=== PATIENT | male | born 1960 | race African-American/Black ===

== ENCOUNTER 2016-09-05 11:50 | Emergency (ER) | payer SELFPAY ==
[~2016-09-05] VITALS: Ht 180.3 cm; Wt 100.0 kg
[~2016-09-05 11:50] MED LIST: CLON.2 PO; IBUP800T23 PO; TRAM50 PO
[2016-09-05 11:51] VITALS: BP 160/88; PULSE 67; RESP 15; TEMP 98.2; O2SAT 95
--- NOTE | 2016-09-05 12:11 | PD ---
HPI Chief Complaint: Back/ Neck Pain or Injury Time Seen by Provider: 12:11 Travel History International Travel<30 days: No Contact w/Intl Traveler<30days: No Traveled to known affect area: No History of Present Illness HPI 56-year-old male presents to the emergency Department with complaint of low back pain since yesterday after lifting a heavy bedside table. He has history of chronic low back pain and has exacerbated the pain more. Pain is worse on the right lower back than the left. He denies paresthesias, loss of sensation, decreased range of motion, decreased strength to bilateral lower extremities. Denies encopresis, incontinence, saddle anesthesias. Denies fever, chills, nausea, vomiting. Denies abdominal pain. Denies radiation of pain. Denies change in urine or stool. Denies IV drug use or cancer. Took aspirin this morning with minimal relief of pain. Has been wearing a back brace for support with good relief. Pain is aggravated with standing up straight. Pain is decreased while at rest. Allergies to Benadryl. No other modifying factors or associated signs and symptoms. PFSH Past Medical History Heart Rhythm Problems: No Cardiac Catheterization: No Cardiovascular Problems: No High Cholesterol: No Congestive Heart Failure: No Diabetes: No Past Surgical History Coronary Artery Bypass Graft: No Social History Alcohol Use: Yes Tobacco Use: Yes Substance Use: Yes (COCAINE) Allergies-Medications (Allergen,Severity, Reaction): Coded Allergies: Benadryl (Verified Allergy, Unknown, increased heart rate, 09/05/16) Reported Meds & Prescriptions Reported Meds & Active Scripts Active Ibuprofen 800 Mg Tab 800 Mg PO Q6HR PRN Robaxin (Methocarbamol) 500 Mg Tab 500 Mg PO QID PRN Ultram (Tramadol HCl) 50 Mg Tab 1 Tab PO EVERY 6 HOURS FOR PAIN Ibuprofen 800 Mg Tab 800 Mg PO TID Catapres (Clonidine HCl) 0.2 Mg Tab 0.2 Mg PO Q12 30 Days Review of Systems Except as stated in HPI: all other systems reviewed are Neg Physical Exam Narrative GENERAL: Well-nourished, well-developed male patient, in no acute distress SKIN: Warm and dry. HEAD: Atraumatic. Normocephalic. EYES: Pupils equal and round. No scleral icterus. No injection or drainage. ENT: Mucosa pink and moist. Airway patent. NECK: Trachea midline. CARDIOVASCULAR: Regular rate. RESPIRATORY: No accessory muscle use. GASTROINTESTINAL: Abdomen soft, non-tender, nondistended. Positive bowel sounds. No hepato-splenomegaly, or palpable masses. No guarding. MUSCULOSKELETAL: Bilateral lower extremities supple and non-tense with 2+ pedal pulses and sensory intact; with full range of motion and 5/5 strength. 2 + DTRs bilaterally. Active dorsiflexion and extension of bilateral feet. Bilateral straight leg raise is positive for low back pain. Ambulatory with normal gait and round. Sitting up in bed at 90. No obvious deformities. No clubbing. No cyanosis. No edema. BACK: No midline point tenderness on palpation of the lumbar, thoracic, or cervical spine. Tenderness on palpation of bilateral iliosacral area; right greater than left. No obvious deformities. NEUROLOGICAL: Awake and alert. Oriented 3. No obvious cranial nerve deficits. Motor grossly within normal limits. Normal speech. Moves all extremities. 5/5 strength to all extremities. Sensory intact. PSYCHIATRIC: Appropriate mood and affect; insight and judgment normal. Data Data Last Documented VS Vital Signs Date Time Temp Pulse Resp B/P Pulse Ox O2 Delivery O2 Flow Rate FiO2 09/05/16 11:51 98.2 67 15 160/88 95 Orders Ibuprofen (Motrin) (09/05/16 12:15) Methocarbamol (Robaxin) (09/05/16 12:15) [facility] Medical Decision Making Medical Screen Exam Complete: Yes Emergency Medical Condition: Yes Medical Record Reviewed: Yes Differential Diagnosis Acute exacerbation of chronic low back pain, low back strain, muscle spasms Narrative Course 56-year-old male with acute exacerbation of chronic low back pain, low back strain, muscle spasms of the back. Denies encopresis, incontinence, saddle anesthesias. Patient is ambulatory in the room with a normal gait. No midline point tenderness on palpation of the lumbar or thoracic spine. Denies IV drug use or cancer. Patient is afebrile and nontoxic-appearing. He denies fever, chills, nausea, vomiting, abdominal pain. Robaxin and ibuprofen administered in the ER. Robaxin and ibuprofen prescribed for home. Patient verbalizes understanding and agreement with treatment plan. Patient is medically cleared and stable for discharge. Discussed reasons to return to the emergency department. Instructed patient to follow up with primary care provider. Patient agrees with treatment plan. The patients vital signs are stable and the patient is stable for outpatient follow-up and treatment. Patient discharged home, stable and in no acute distress. Diagnosis Primary Impression: Low back strain Qualified Code: S39.012A - Low back strain, initial encounter Additional Impressions: Acute exacerbation of chronic low back pain Muscle spasm of back Referrals: Primary Care Physician Patient Instructions: Acute Low Back Pain (ED), General Instructions, Low Back Strain (ED), Muscle Spasm (ED) Departure Forms: Tests/Procedures, Work Release Enter return to work date: Sep 08, 2016 Additional Instructions: Tylenol or ibuprofen as directed and as needed for pain Robaxin as prescribed and as needed for muscle spasms Heating pad and/or ice to affected area to reduce pain Avoid aggravating activities; increase activity as tolerated Follow-up with primary care provider Return to emergency department immediately with worsening of symptoms Med/Other Pt SpecificInfo: Prescription(s) given Scripts Ibuprofen 800 Mg [id number] Mg PO Q6HR PRN (PAIN) #30 TAB Ref 0 Prov:Lesley Michele 09/05/16 Methocarbamol (Robaxin)500 Mg [id number] Mg PO QID PRN (MUSCLE SPASM) #30 TAB Ref 0 Prov:Lesley Michele 09/05/16 Disposition: 01 DISCHARGE HOME Condition: Stable Lesley Michele Sep 05, 2016 12:11
[2016-09-05] MEDS ORDERED: ROBA500T PO (12:14)
[2016-09-05] MEDS ORDERED: IBUP800T23 PO (12:14)
[2016-09-05] MEDS ORDERED: IBUPROFEN 800 MG TAB PO ONE (12:15)
[2016-09-05] MEDS ORDERED: METHOCARBAMOL 500 MG TAB PO ONE (12:15)
== END 2016-09-05 12:42 | disposition home or self-care (01) ==
LOC: NETRI 11:50
DX: S39.012A Strain of muscle, fascia and tendon of lower back, initial encounter (principal); M62.830 Muscle spasm of back; X50.0XXA Overexertion from strenuous movement or load, initial encounter; Y92.9 Unspecified place or not applicable; Y99.9 Unspecified external cause status
CPT/HCPCS: 99283

== ENCOUNTER 2016-12-21 19:07 | Emergency (ER) | payer SELFPAY ==
[~2016-12-21] VITALS: Ht 180.3 cm; Wt 100.0 kg
[~2016-12-21 19:07] MED LIST changes: +ROBA500T PO
[2016-12-21 19:09] VITALS: BP 136/77; PULSE 62; RESP 16; TEMP 98.8; O2SAT 97
== END 2016-12-21 21:19 | disposition left against medical advice (07) ==
LOC: NED 19:07
DX: R10.9 Unspecified abdominal pain (principal); Z53.21 Procedure and treatment not carried out due to patient leaving prior to being seen by health care provider
CPT/HCPCS: 99281

== ENCOUNTER 2017-05-17 22:07 | Emergency (ER) | payer SELFPAY ==
[~2017-05-17] VITALS: Ht 180.3 cm; Wt 100.0 kg
[~2017-05-17 22:07] MED LIST changes: +IBUP1TAB7 PO
[2017-05-17 22:13] VITALS: BP 115/66; PULSE 78; RESP 16; TEMP 98.4; O2SAT 96
[2017-05-17] MEDS ORDERED: ASPI81CH6 PO (22:41)
--- NOTE | 2017-05-17 23:05 | PD ---
HPI Chief Complaint: Pain: Acute or Chronic Time Seen by Provider: 22:41 Travel History International Travel<30 days: No Contact w/Intl Traveler<30days: No Traveled to known affect area: No History of Present Illness HPI 57 year old male presents for evaluation of Left wrist pain. He states that he has been having a sharp/shooting pain in his Left wrist for about three weeks now. He came to the ED today because it seems to be getting worse. He has pain with activity. He has not taken anything for the pain. He denies any injury to the extremity. He denies fevers/chills. No nausea or vomiting. He has never had gout before although his father suffers from it. He is sexually active with multiple female partners however, he is convinced that he doesn't have any STIs. [facility] Past Medical History Medical History: Denies Significant Hx Heart Rhythm Problems: No Cardiac Catheterization: No Cardiovascular Problems: No High Cholesterol: No Congestive Heart Failure: No Diabetes: No Diminished Hearing: No Heparin Induced Thrombocytopen: No Hypertension: No Past Surgical History Coronary Artery Bypass Graft: No Family History Family Myocardial Infarction: Yes Social History Alcohol Use: No Tobacco Use: No Substance Use: No (COCAINE) Allergies-Medications (Allergen,Severity, Reaction): Coded Allergies: diphenhydramine (Unverified Allergy, Unknown, increased heart rate, ) ondansetron (Verified Adverse Reaction, Mild, Nausea/Vomiting, 05/17/17) Reported Meds & Prescriptions Reported Meds & Active Scripts Active Mobic (Meloxicam) 15 Mg Tab 15 Mg PO DAILY 7 Days Reported Aspirin Low Dose (Aspirin) 81 Mg Chew 162 Mg PO DAILY Review of Systems Except as stated in HPI: all other systems reviewed are Neg General / Constitutional: No: Fever, Chills Eyes: No: Blurred Vision HENT: No: Headaches, Lightheadedness Cardiovascular: No: Chest Pain or Discomfort Respiratory: No: Cough, Shortness of Breath Gastrointestinal: No: Nausea, Vomiting, Diarrhea Musculoskeletal: Positive: Myalgias, Arthralgias, Pain (Left wrist) Physical Exam Narrative GENERAL: patient is laying in bed comfortably in no acute distress SKIN: Warm and dry. HEAD: Atraumatic. Normocephalic. EYES: Pupils equal and round. No scleral icterus. No injection or drainage. ENT: No nasal bleeding or discharge. Mucous membranes pink and moist. NECK: Trachea midline. No JVD. CARDIOVASCULAR: Regular rate and rhythm. RESPIRATORY: No accessory muscle use. Clear to auscultation. Breath sounds equal bilaterally. GASTROINTESTINAL: Abdomen soft, non-tender, nondistended. Hepatic and splenic margins not palpable. MUSCULOSKELETAL: Extremities without clubbing, cyanosis, or edema. No obvious deformities. There is tenderness to palpation over the distal radius overlying the FCR tendons, there is also pain with resisted radial deviation. No tenderness noted in the anatomic snuffbox. Radial and ulnar pulses are 2+ and symmetrical. Neurologically intact C6-8. Phalen's and Tinel's signs negative. NEUROLOGICAL: Awake and alert. No obvious cranial nerve deficits. Motor grossly within normal limits. Five out of 5 muscle strength in the arms and legs. Normal speech. PSYCHIATRIC: Appropriate mood and affect; insight and judgment normal. Data Data Last Documented VS Vital Signs Date Time Temp Pulse Resp B/P (MAP) Pulse Ox O2 Delivery O2 Flow Rate FiO2 05/17/17 23:27 05/17/17 22:13 98.4 78 16 96 Orders Orders Ed Discharge Order (05/17/17 23:10) MDM Medical Decision Making Medical Screen Exam Complete: Yes Emergency Medical Condition: Yes Differential Diagnosis De Quervain Tenosynovitis, Osteoarthritis, Gouty Arthritis, Disseminated Gonococcal infection is unlikely Narrative Course The patient is not a good candidate for emergent imaging due to the prolonged nature of the pain, he also has no red flags for scaphoid fracture. The patient was advised to follow up with the [facility] piler orthopaedic surgeon for further management of this condition. He will be given a script for Mobic to help with the inflammatory response. Diagnosis Primary Impression: De Quervain's tenosynovitis, right Med/Other Pt SpecificInfo: Prescription(s) given Scripts Meloxicam (Mobic) 15 Mg Tab 15 MG PO DAILY for 7 Days, #7 TAB 0 Refills Prov: Jaylon Garcia MD 05/17/17 Disposition: 01 DISCHARGE HOME Condition: Stable Jaylon Garcia MD May 17, 2017 23:05
[2017-05-17] MEDS ORDERED: MOBI15TA PO (23:10)
== END 2017-05-17 23:31 | disposition home or self-care (01) ==
LOC: NEPD 22:07
DX: M65.4 Radial styloid tenosynovitis [de Quervain] (principal)
CPT/HCPCS: 99283

== ENCOUNTER 2017-05-30 19:49 | Observation (INO) | payer SELFPAY ==
[~2017-05-30] VITALS: Ht 180.3 cm; Wt 102.3 kg
[~2017-05-30 19:49] MED LIST changes: +ASPI81CH6 PO; -CLON.2 PO; -IBUP1TAB7 PO; -IBUP800T23 PO; +MOBI15TA PO; -ROBA500T PO; -TRAM50 PO
[2017-05-30 19:50] VITALS: BP 140/76; PULSE 80; RESP 16; TEMP 97.9; O2SAT 95
[2017-05-30 20:05] VITALS: BP 147/86; PULSE 81; RESP 18; O2SAT 95
[2017-05-30] MEDS ORDERED: RESP: ALBUTEROL 2.5 MG/3 ML NEB (SCH) INH ONE (20:15)
[2017-05-30] MEDS ORDERED: SODIUM CHLORIDE 0.9% FLUSH 10 ML FLUSH IVF PRN (20:15)
--- NOTE | 2017-05-30 20:35 | RADRPT ---
EXAM DATE/TIME: 05/30/2017 20:25 [facility] COMPARISON: CHEST SINGLE AP, January 20, 2014, 8:40. INDICATIONS : Shortness of breath. MEDICAL HISTORY : None. SURGICAL HISTORY : None. ENCOUNTER: Initial ACUITY: 1 day PAIN SCORE: 0/10 LOCATION: Bilateral chest FINDINGS: A single view of the chest demonstrates the lungs to be symmetrically aerated without evidence of mas s, infiltrate or effusion. Minimal basilar atelectasis. The cardiomediastinal contours are unremarka ble. Osseous structures are intact. CONCLUSION: 1. Minimal basilar atelectasis. No consolidation or effusion. Scooby Chen MD on May 30, 2017 at 20:33 Board Certified Radiologist. This report was verified electronically.
[2017-05-30 20:49] LABS: AUTOMATED NEUTROPHIL # 4.1 TH/MM3 (1.8-7.7); BASOPHIL # 0.1 TH/MM3 (0-0.2); BASOPHIL % 0.8 % (0.0-2.0); EOSINOPHIL # 0.2 TH/MM3 (0-0.4); EOSINOPHIL % 2.2 % (0.0-4.0); HEMO FLAGS DIFF FINAL; LYMPH % 35.2 % (9.0-44.0); LYMPHOCYTE # 2.6 TH/MM3 (1.0-4.8); MEAN CELL VOLUME 93.3 FL (80.0-100.0); MEAN CORPUSCULAR HEMOGLOBIN 31.1 PG (27.0-34.0); MEAN CORPUSCULAR HGB CONC 33.4 % (32.0-36.0); MONO % 6.7 % (0.0-8.0); NEUT % 55.1 % (16.0-70.0); PLATELET COUNT 251 TH/MM3 (150-450); RED BLOOD COUNT 4.82 MIL/MM3 (4.50-5.90); RED CELL DISTRIBUTION WIDTH 12.9 % (11.6-17.2); WHITE BLOOD COUNT 7.5 TH/MM3 (4.0-11.0)
[2017-05-30 20:59] LABS: ANION GAP 11 MEQ/L (5-15); BICARBONATE 24.3 MEQ/L (21.0-32.0); BLOOD UREA NITROGEN 13 MG/DL (7-18); CHLORIDE 105 MEQ/L (98-107); GLOMERULAR FILTRATION RATE 69 ML/MIN (>89); POTASSIUM 4.1 MEQ/L (3.5-5.1); SODIUM (NA) 140 MEQ/L (136-145)
--- NOTE | 2017-05-30 21:06 | PD ---
HPI Chief Complaint: Respiratory Distress Time Seen by Provider: 19:58 Travel History International Travel<30 days: No Contact w/Intl Traveler<30days: No Traveled to known affect area: No History of Present Illness HPI 57-year-old male arrives to the ER by private vehicle. He reports shortness of breath. Duration 24 hours. For the last 5 or 6 hours he's had dyspnea on exertion. No orthopnea. He denies chest pain. No cough or fever. The patient smokes. He carries no diagnosis of COPD or asthma. He denies similar prior events. He denies hypertension and hyperlipidemia. He denies diabetes. There is a family history of myocardial infarctions. He denies drug alcohol abuse. [facility] Past Medical History Medical History: Denies Significant Hx Heart Rhythm Problems: No Cardiac Catheterization: No Cardiovascular Problems: No High Cholesterol: No Congestive Heart Failure: No Diabetes: No Diminished Hearing: No Heparin Induced Thrombocytopen: No Hypertension: No Tetanus Vaccination: > 5 Years Influenza Vaccination: No Past Surgical History Coronary Artery Bypass Graft: No Family History Family Myocardial Infarction: Yes Social History Alcohol Use: Yes (OCC) Tobacco Use: Yes Substance Use: No (COCAINE, MJ) Allergies-Medications (Allergen,Severity, Reaction): Coded Allergies: diphenhydramine (Verified Allergy, Unknown, increased heart rate, 05/30/17 ) ondansetron (Verified Adverse Reaction, Mild, Nausea/Vomiting, 05/30/17) Reported Meds & Prescriptions Reported Meds & Active Scripts Active Reported Aspirin Low Dose (Aspirin) 81 Mg Chew 162 Mg PO DAILY Review of Systems Except as stated in HPI: all other systems reviewed are Neg General / Constitutional: No: Fever Cardiovascular: No: Chest Pain or Discomfort Respiratory: Positive: Shortness of Breath Physical Exam Narrative GENERAL: 57 yo M, WNWD, speaking sentences, standing in room SKIN: Warm and dry. HEAD: Atraumatic. Normocephalic. EYES: Pupils equal and round. No scleral icterus. No injection or drainage. ENT: No nasal bleeding or discharge. Mucous membranes pink and moist. NECK: Trachea midline. No JVD. CARDIOVASCULAR: Regular rate and rhythm. RESPIRATORY: No accessory muscle use. Clear to auscultation. Breath sounds equal bilaterally. GASTROINTESTINAL: Abdomen soft, non-tender, nondistended. Hepatic and splenic margins not palpable. MUSCULOSKELETAL: Extremities without clubbing, cyanosis, or edema. No obvious deformities. NEUROLOGICAL: Awake and alert. No obvious cranial nerve deficits. Motor grossly within normal limits. Five out of 5 muscle strength in the arms and legs. Normal speech. PSYCHIATRIC: Appropriate mood and affect; insight and judgment normal. Data Data Last Documented VS Vital Signs Date Time Temp Pulse Resp B/P (MAP) Pulse Ox O2 Delivery O2 Flow Rate FiO2 05/30/17 21:41 75 20 161/81 (107) 98 Room Air 05/30/17 21:38 2.00 05/30/17 19:50 97.9 VS reviewed Orders Orders Complete Blood Count With Diff (05/30/17 20:06) Basic Metabolic Panel (Bmp) (05/30/17 20:06) D-Dimer (05/30/17 20:06) Ckmb (Isoenzyme) Profile (05/30/17 20:06) Troponin I (05/30/17 20:06) Iv Access Insert/Monitor (05/30/17 20:06) Electrocardiogram (05/30/17 20:06) Ecg Monitoring (05/30/17 20:06) Oximetry (05/30/17 20:06) Oxygen Administration (05/30/17 20:06) Chest, Single Ap (05/30/17 20:06) Sodium Chloride 0.9% Flush (Ns Flush) (05/30/17 20:15) Albuterol Neb (Albuterol Neb) (05/30/17 20:15) CKMB (05/30/17 20:15) CKMB% (05/30/17 20:15) Diazepam (Valium) (05/30/17 21:45) Activity Bed Rest With Brp (05/30/17 21:43) Vital Signs (Adult) Q4H (05/30/17 21:43) Cardiac Rhythm .As Directed (05/30/17:43) Notify Dr: Other .PRN (05/30/17 21:43) Notify Parameters (05/30/17 21:43) Resp Oxygen Nasal Cannula (05/30/17 ) Ckmb (Isoenzyme) Profile (05/30/17 21:43) Ckmb (Isoenzyme) Profile (05/31/17 00:43) Troponin I (05/30/17 21:43) Troponin I (05/31/17 00:43) Electrocardiogram (05/30/17 21:43) Electrocardiogram (05/31/17 00:43) ^ Obtain (05/30/17 21:43) Sodium Chloride 0.9% Flush (Ns Flush) (05/30/17 21:45) Sodium Chloride 0.9% Flush (Ns Flush) (05/31/17 09:00) Morphine Inj (Morphine Inj) (05/30/17 21:45) Ondansetron Inj (Zofran Inj) (05/30/17 21:45) Nitroglycerin Sl (Nitrostat Sl) (05/30/17 21:45) Aspirin (Aspirin) (05/31/17 09:00) Solutions Developer / Telemetry [id number] (05/30/17 21:43) Admit Order (Ed Use Only) (05/30/17 21:43) Labs Laboratory Tests Test 05/30/17 20:15 White Blood Count 7.5 TH/MM3 Red Blood Count 4.82 MIL/MM3 Hemoglobin 15.0 GM/DL Hematocrit 45.0 % Mean Corpuscular Volume 93.3 FL Mean Corpuscular Hemoglobin 31.1 PG Mean Corpuscular Hemoglobin Concent 33.4 % Red Cell Distribution Width 12.9 % Platelet Count 251 TH/MM3 Mean Platelet Volume 8.2 FL Neutrophils (%) (Auto) 55.1 % Lymphocytes (%) (Auto) 35.2 % Monocytes (%) (Auto) 6.7 % Eosinophils (%) (Auto) 2.2 % Basophils (%) (Auto) 0.8 % Neutrophils # (Auto) 4.1 TH/MM3 Lymphocytes # (Auto) 2.6 TH/MM3 Monocytes # (Auto) 0.5 TH/MM3 Eosinophils # (Auto) 0.2 TH/MM3 Basophils # (Auto) 0.1 TH/MM3 CBC Comment DIFF FINAL Differential Comment D-Dimer Quantitative (PE/DVT) 0.34 MG/L FEU Blood Urea Nitrogen 13 MG/DL Creatinine 1.31 MG/DL Random Glucose 97 MG/DL Calcium Level 8.6 MG/DL Sodium Level 140 MEQ/L Potassium Level 4.1 MEQ/L Chloride Level 105 MEQ/L Carbon Dioxide Level 24.3 MEQ/L Anion Gap 11 MEQ/L Estimat Glomerular Filtration Rate 69 ML/MIN Total Creatine Kinase 1009 U/L Creatine Kinase MB 7.5 NG/ML Creatine Kinase MB % 0.7 % Troponin I LESS THAN 0.02 NG/ML MDM Medical Decision Making Medical Screen Exam Complete: Yes Emergency Medical Condition: Yes Medical Record Reviewed: Yes Differential Diagnosis NSTEMI, unstable angina, coronary vasospasm, PE, PTX, aortic dissection, pericarditis, myocarditis, endocarditis, PNA, esophageal disease, aneurysm, musculoskeletal etiologies, anxiety, cocaine/sympathomimetic abuse Narrative Course ekg: sinus, rate 76, multiple leads with ST elevation similar to prior EKGs in morphology CBC & BMP Diagram 05/30/17 20:15 Calcium Level 8.6 Tn < 0.02 CK 1000 DDimer 0.34 CXR: NACPD The patient reports persistent dyspnea at 945pm. He also states the LUE and L jaw are painful, however notes the LUE pain has been present for several weeks. At time of reassessment pt reports alcohol and cocaine abuse yesterday. Last cardiac evaluation was 4 years ago such that chest pain center protocol considered reasonable next step in patient's evaluation. Diagnosis Primary Impression: Shortness of breath Additional Impressions: Polysubstance abuse Chest pain Qualified Codes: R07.9 - Chest pain, unspecified Admitting Information Admitting Physician Requests: Observation Elliott Little MD May 30, 2017 21:06
[2017-05-30 21:14] LABS: CREATINE KINASE 1009 U/L (39-308)
[2017-05-30 21:26] LABS: CKMB 7.5 NG/ML (0.5-3.6)
--- NOTE | 2017-05-30 21:28 | EKG ---
Date Performed: 05/30/2017 Time Performed: 20:13:23 PTAGE: 57 years EKG: Sinus rhythm NONSPECIFIC INTRAVENTRICULAR CONDUCTION DELAY LEFT VENTRICULAR HYPERTROPHY AND ST-T CHANGE POSSIBLE SEPTAL MYOCARDIAL INFARCTION, POSSIBLY ACUTE PREVIOUS TRACING : 01/20/2014 14.50 Compared to previous tracing, early repolarization pa ttern is less evident, inferior T wave abnormality has resolved. DOCTOR: Red Chahal Interpretating Date/Time 05/30/2017 21:27:02
[2017-05-30 21:41] VITALS: BP 161/81; PULSE 75; RESP 20; O2SAT 98
[2017-05-30] MEDS ORDERED: MORPHINE SULFATE 4 MG/ML INJ IV PUSH PRN (21:45)
[2017-05-30] MEDS ORDERED: ONDANSETRON HCL 4 MG/2 ML VIAL IV PUSH PRN (21:45)
[2017-05-30] MEDS ORDERED: NITROGLYCERIN 0.4 MG SL 25 TABS/BTL SL PRN (21:45)
[2017-05-30] MEDS ORDERED: DIAZEPAM 5 MG TAB PO ONE (21:45)
[2017-05-30] MEDS ORDERED: SODIUM CHLORIDE 0.9% FLUSH 10 ML FLUSH IV FLUSH PRN (21:45)
[2017-05-30 21:51] VITALS: O2SAT 95
[2017-05-30] MEDS ORDERED: SODIUM CHLOR 0.9% 1000 ML INJ 1,000 ML IV ONE (22:00)
[2017-05-30 22:26] VITALS: BP_SYST 144; BP_SYST 77; BP_DIAS 77; PULSE 76; RESP 18; TEMP 98.1; O2SAT 96
[2017-05-30 23:20] VITALS: PULSE 77
[2017-05-31] VITALS (8 sets, daily range): BP systolic 129–137; BP diastolic 71–79; PULSE 54–73; RESP 18–22; TEMP 98–98.2; O2SAT 96–98
[2017-05-31 00:42] LABS: CREATINE KINASE 826 U/L (39-308)
[2017-05-31 00:54] LABS: CKMB 5.7 NG/ML (0.5-3.6)
[2017-05-31 03:42] LABS: CKMB 4.6 NG/ML (0.5-3.6)
[2017-05-31] MEDS ORDERED: ACETAMINOPHEN 500 MG CPLT PO PRN (07:45)
--- NOTE | 2017-05-31 08:24 | HHI.HP ---
HPI Primary Care Physician No Primary Care Physician Chief Complaint Dyspnea and chest tightness History of Present Illness 57 year old male with no known past medical history presents to ER for further evaluation of chest discomfort. Endorses recent drinking binge and using cocaine from until Thursday. Reports not sleeping during this period. Developed chest tightness and dyspnea sometime Thursday morning. Symptoms persisted throughout the day, therefore, came to ER for further evaluation. Onset approx between 9-10am Thursday. Characterized as tightness. Location left anterior chest. Severity moderate. No radiation of tightness. Associated symptoms included dyspnea, wheezing, and hurting to take deep breaths. Duration all day, currently chest pain free. Precipitating factors he relates to recent drinking/drug binge and not sleeping since . No know relieving factors. Has been chest pain and without dyspnea. Review of Systems General: No fatigue,weakness, fever, chills, or recent illness. Has not sleep since and feels dehydrated due to recent drinking binge, endorses not drinking any other fluids than alcohol. HEENT: No WIGGINS, no vision changes, no nasal congestion or drainage, no dysphasia CV: As stated above. Chest tightness as resolved. No palpitations or dizziness RESP: Wheezing and dyspnea resolved. No recent cough, respiratory infection, sputum production, or history of asthma. GI: No nausea, vomiting, or bowel changes. Weight gain of #25 in past year, related to poor diet. : No dysuria, urgency, frequency, or history of kidney stones EXT: Intermittent dependent bilateral lower leg edema, no paraesthesias MS: No discomfort or change in ROM NEURO: No difficulty with balance, LOC, motor/sensory deficits PSYCH: Endorses past dependency issues with alcohol and use of cocaine. States he made a bad decision past week using drugs and alcohol. No anxiety, depression , or suicidal ideation SKIN: No rashes, no concerning lesions Past Family Social History Allergies: Coded Allergies: diphenhydramine (Verified Allergy, Unknown, increased heart rate, 05/30/17 ) ondansetron (Verified Adverse Reaction, Mild, Nausea/Vomiting, 05/30/17) Past Medical History ETOH abuse, substance abuse Past Surgical History Pilonidal cyst removed Reported Medications Reported Meds & Active Scripts Active Reported MVI daily Active Ordered Medications Current Medications Medications (Trade) Dose Ordered Sig/Tessy Route Start Time Stop Time Status Last Admin (NS Flush) 2 ml UNSCH PRN IVF 05/30/17 20:15 (NS Flush) 2 ml UNSCH PRN IV FLUSH 05/30/17 21:45 (NS Flush) 2 ml BID IV FLUSH 05/31/17 09:00 05/31/17 08:03 (Morphine Inj) 2 mg Q4H PRN IV PUSH 05/30/17 21:45 (Nitrostat Sl) 0.4 mg Q5M PRN SL 05/30/17 21:45 (Aspirin) 325 mg DAILY PO 05/31/17 09:00 05/31/17 08:04 (Tylenol) 500 mg Q4H PRN PO 05/31/17 07:45 Family History Mother CABG in her mid 50s. Social History No known diabetes, hypertension, or hyperlipidemia. Recent tobacco use during drinking binge, denies having a regular smoking habit. Endorses recent cocaine use. Endorses recent drinking binge, last drink Thursday morning. Endorses a sedentary lifestyle. Works at a [employer]. Past cardiac testing 01/21/2014 Lexiscan unremarkable study. Physical Exam Vital Signs Vital Signs Date Time Temp Pulse Resp B/P (MAP) Pulse Ox O2 Delivery O2 Flow Rate FiO2 05/31/17 03:50 66 05/31/17 03:29 98.0 69 18 130/71 (90) 96 05/31/17 00:31 73 05/30/17 23:20 77 05/30/17 22:26 98.1 76 18 144/77 (99) 96 05/30/17 22:17 05/30/17 21:51 95 Nasal Cannula 2.00 05/30/17 21:41 75 20 161/81 (107) 98 Room Air 05/30/17 21:38 96 Nasal Cannula 2.00 05/30/17 20:05 81 18 147/86 (106) 95 Room Air 05/30/17 20:02 18 95 Room Air 05/30/17 19:50 97.9 80 16 140/76 (97) 95 Room Air Physical Exam GENERAL: Alert WN, WD, NAD, pleasant, male HEAD: NC, AT NECK: Supple, no masses, trachea midline CV: RRR, without murmur, rub, gallop, no JVD, S1-S2 no S3-S4. No carotid bruits. RESP: Clear lungs throughout bilateral, slightly diminished bases. No crackles , wheeze, or rhonchi. symmetrical chest rise, nonlabored, able to speak in full sentences ABD: Soft, NT, ND, no masses, positive bowel tones EXT: Pulses +24, trace bilateral lower extremity dependent edema MS: Normal tone 4 extremities, no obvious deformities, full range of motion NEURO: CN II through CN XII grossly intact, motor strength 5/5 PSYCH: A+O 3, pleasant affect, appropriate speech, mood, insight and judgment. Verbalized remorse around recent drug and alcohol use. SKIN: Normal turgor, normal texture, no lesions, no rashes, sluggish cap refill Laboratory Laboratory Tests Test 05/30/17 20:15 05/30/17 23:20 05/31/17 02:30 White Blood Count 7.5 Red Blood Count 4.82 Hemoglobin 15.0 Hematocrit 45.0 Mean Corpuscular Volume 93.3 Mean Corpuscular Hemoglobin 31.1 Mean Corpuscular Hemoglobin Concent 33.4 Red Cell Distribution Width 12.9 Platelet Count 251 Mean Platelet Volume 8.2 Neutrophils (%) (Auto) 55.1 Lymphocytes (%) (Auto) 35.2 Monocytes (%) (Auto) 6.7 Eosinophils (%) (Auto) 2.2 Basophils (%) (Auto) 0.8 Neutrophils # (Auto) 4.1 Lymphocytes # (Auto) 2.6 Monocytes # (Auto) 0.5 Eosinophils # (Auto) 0.2 Basophils # (Auto) 0.1 CBC Comment DIFF FINAL Differential Comment D-Dimer Quantitative (PE/DVT) 0.34 Blood Urea Nitrogen 13 Creatinine 1.31 Random Glucose 97 Calcium Level 8.6 Sodium Level 140 Potassium Level 4.1 Chloride Level 105 Carbon Dioxide Level 24.3 Anion Gap 11 Estimat Glomerular Filtration Rate 69 Total Creatine Kinase 1009 826 730 Creatine Kinase MB 7.5 5.7 4.6 Creatine Kinase MB % 0.7 0.7 0.6 Troponin I LESS THAN 0.02 LESS THAN 0.02 0.02 Result Diagram: 05/30/17201405/30/172014 Imaging Last Impressions Chest X-Ray 05/30/172005 Signed Impressions: Service Date/Time: Tuesday, May 30, 2017 20:25 - CONCLUSION: 1. Minimal basilar atelectasis. No consolidation or effusion. Scooby Chen MD Course EKG NSB, criteria for LVH, ST elevation may represent early repolarization ( compared to previously EKG) Caprini VTE Risk Assessment Caprini VTE Risk Assessment: No/Low Risk (score <= 1) Caprini Risk Assessment Model Point Value = 1 Point Value = 2 Point Value = 3 Point Value = 5 Age 41-60 Minor surgery BMI > 25 kg/m2 Swollen legs Varicose veins or History of unexplained or recurrent spontaneous Oral contraceptives or hormone replacement Sepsis (< 1 month) Serious lung disease, including pneumonia (< 1 month) Abnormal pulmonary function Acute myocardial infarction Congestive heart failure (< 1 month) History of inflammatory bowel disease Medical patient at bed rest Age 61-74 Arthroscopic surgery Major open surgery (> 45 min) Laparoscopic surgery (> 45 min) Malignancy Confined to bed (> 72 hours) Immobilizing plaster cast Central venous access Age >= 75 History of VTE Family history of VTE Factor V Leiden Prothrombin [id number] Lupus anticoagulant Anticardiolipin antibodies Elevated serum homocysteine Heparin-induced thrombocytopenia Other congenital or acquired thrombophilia Stroke (< 1 month) Elective arthroplasty Hip, pelvis, or leg fracture Acute spinal cord injury (< 1 month) Prophylaxis Regimen Total Risk Factor Score Risk Level Prophylaxis Regimen 0-1 Low Early ambulation 2 Moderate Order ONE of the following: *Sequential Compression Device (SCD) *Heparin 5000 units SQ BID 3-4 Higher Order ONE of the following medications: *Heparin 5000 units SQ TID *Enoxaparin/Lovenox 40 mg SQ daily (WT < 150 kg, CrCl > 30 mL/min) *Enoxaparin/Lovenox 30 mg SQ daily (WT < 150 kg, CrCl > 10-29 mL/min) *Enoxaparin/Lovenox 30 mg SQ BID (WT < 150 kg, CrCl > 30 mL/min) AND/OR *Sequential Compression Device (SCD) 5 or more Highest Order ONE of the following medications: *Heparin 5000 units SQ TID (Preferred with Epidurals) *Enoxaparin/Lovenox 40 mg SQ daily (WT < 150 kg, CrCl > 30 mL/min) *Enoxaparin/Lovenox 30 mg SQ daily (WT < 150 kg, CrCl > 10-29 mL/min) *Enoxaparin/Lovenox 30 mg SQ BID (WT < 150 kg, CrCl > 30 mL/min) AND *Sequential Compression Device (SCD) Assessment and Plan Assessment and Plan #1 Chest pain-admitted to chest pain center. Ruled out with 3 sets of EKGs and troponin. Total CK elevated and treading down. Seen and evaluated by Dr. Victor Manuel Mallory. Recommended further cardiac testing to include a nuclear exercise treadmill or a chemical stress test. Declining any type of cardiac testing, unable to perform treadmill stress testing without nuclear portion due to baseline EKG. Reassurance and education on both types of cardiac testing, however patient still declines any stress testing. Risks and benefits of testing explained. Since patient will not consent for stress testing, will obtain echocardiogram to assess LVF and areas of old injury. Plans to discharge after echocardiogram completed and read by Dr. Mallory. Patient agreeable to plan of care. #2 Cocaine use-advised of risks of cocaine including, but not limited to, MS and . Instructed not to use cocaine. Verbalized understanding. #3 Alcohol use-advised on risks of alcohol abuse including, but not limited to, cardiomyopathy and liver disease. Discussed stop drinking while encouraging alcoholics anonymous. #4 Mild renal insufficiency-discussed possible causes of renal insufficiency, establish with a primary care provider to tread creatine levels. Encouraged to establish with a PCP for medical management and preventive care. Names of local free of fee for services clinics given and discussed. [id number] Dr. Mallory reviewed echocardiogram. Thickening of septal wall noted, EF between 60-65%. Discussed with patient importance of follow up appointment to determine suspected long-standing hypertension as possible cause of septal wall thickening. Earnestine Hyde [employer] May 31, 2017 08:24
[2017-05-31] MEDS ORDERED: ASPIRIN 325 MG TAB PO SCH (09:00)
[2017-05-31] MEDS ORDERED: SODIUM CHLORIDE 0.9% FLUSH 10 ML FLUSH IV FLUSH SCH (09:00)
--- NOTE | 2017-05-31 10:29 | EKG ---
Date Performed: 05/31/2017 Time Performed: 02:35:29 PTAGE: 57 years EKG: Sinus rhythm RIGHT BUNDLE BRANCH BLOCK LEFT ANTERIOR FASCICULAR BLOCK LEFT VENTRICULAR HYPERTROPHY AND ST-T TAN E ABNORMAL ECG ST ELEVATION UNCHANGED BUT CAN'T RO ISCHEMIA PREVIOUS TRACING : 05/30/2017 23.24 DOCTOR: Victor Manuel Mallory Interpretating Date/Time 05/31/2017 10:27:16
--- NOTE | 2017-05-31 10:30 | EKG ---
Date Performed: 05/30/2017 Time Performed: 23:24:55 PTAGE: 57 years EKG: Sinus rhythm RIGHT BUNDLE BRANCH BLOCK LEFT ANTERIOR FASCICULAR BLOCK POSSIBLE LEFT VENTRICULAR HYPERTROPHY ABNOR MAL ECG CAN'T RO ISCHEMIA BUT UNCHANGED FROM PREV PREVIOUS TRACING : 05/30/2017 20.13 DOCTOR: Victor Manuel Mallory Interpretating Date/Time 05/31/2017 10:29:14
--- NOTE | 2017-05-31 15:40 | ECHRPT ---
Indication: chf CONCLUSIONS Normal left ventricular size and wall thickness. The left ventricular systolic function is normal wi th an estimated ejection fraction in the range of 60-65%. No definite wall motion abnormalities. Trace mitral valve regurgitation. There is trace tricuspid valve regurgitation. BP: / HR: Rhythm: MEASUREMENTS (Male / Female) Normal Values Technical Quality:Poor 2D ECHO LV Diastolic Diameter PLAX 4.8 cm 4.2 - 5.9 / 3.9 - 5.3 cm LV Systolic Diameter PLAX 3.4 cm IVS Diastolic Thickness 1.0 cm 0.6 - 1.0 / 0.6 - 0.9 cm LVPW Diastolic Thickness 1.1 cm 0.6 - 1.0 / 0.6 - 0.9 cm LV Relative Wall Thickness 0.4 RV Internal Dim ED PLAX 1.6 cm M-MODE Aortic Root Diameter MM 3.7 cm LA Systolic Diameter MM 4.0 cm LA Ao Ratio MM 1.1 AV Cusp Separation MM 1.6 cm FINDINGS LEFT VENTRICLE Normal left ventricular size and wall thickness. The left ventricular systolic function is normal wi th an estimated ejection fraction in the range of 60-65%. No definite wall motion abnormalities. RIGHT VENTRICLE Normal right ventricular size and systolic function. LEFT ATRIUM The left atrial size is normal. RIGHT ATRIUM The right atrial size is normal. ATRIAL SEPTUM Normal atrial septal thickness without atrial level shunting by limited color doppler interrogation. AORTA The aortic root and proximal ascending aorta are not well visualized. MITRAL VALVE Structurally normal mitral valve. Trace mitral valve regurgitation. AORTIC VALVE Trileaflet aortic valve. No aortic valve stenosis or regurgitation. TRICUSPID VALVE Structurally normal tricuspid valve. There is trace tricuspid valve regurgitation. PULMONARY VALVE The pulmonary valve is not well visualized. VESSELS The inferior vena cava was not well visualized. PERICARDIUM No pericardial effusion. Red Chahal MD (Electronically Signed) Final Date:31 May 2017 15:40
--- NOTE | 2017-05-31 15:50 | HHI.DCPOC ---
Discharge Care Plan Diagnosis: (1) Cocaine abuse (2) Alcohol abuse (3) Mild renal insufficiency (4) Chest pain of uncertain etiology (5) Tobacco abuse Goals to Promote Your Health * To prevent worsening of your condition and complications * To maintain your health at the optimal level Directions to Meet Your Goals Take your medications as prescribed Follow your dietary instruction Follow activity as directed Keep your appointments as scheduled Take your immunizations and boosters as scheduled If your symptoms worsen call your PCP, if no PCP go to Urgent Care Center or Emergency Room Smoking is Dangerous to Your Health. Avoid second hand smoke Call the 24-hour hour crisis hotline for domestic abuse at Earnestine Hyde May 31, 2017 15:50
== END 2017-05-31 17:14 | disposition home or self-care (01) ==
LOC: NEPE 19:49 → NEDA 21:46 → NEPFCDU 22:24
PROVIDERS: ADMIT Internal Medicine Interventional Cardiology; ATTEND Internal Medicine Interventional Cardiology
DX: R07.9 Chest pain, unspecified (principal); R06.09 Other forms of dyspnea; F14.10 Cocaine abuse, uncomplicated; R74.8 Abnormal levels of other serum enzymes; R94.31 Abnormal electrocardiogram [ECG] [EKG]; F10.10 Alcohol abuse, uncomplicated; F17.200 Nicotine dependence, unspecified, uncomplicated; J98.11 Atelectasis; Z82.49 Family history of ischemic heart disease and other diseases of the circulatory system
CPT/HCPCS: 71010; 80048; 82550; 82552; 84484; 85025; 85379; 93005; 93308; 94664; 96360; 99285; G0378; J7030; J7613

== ENCOUNTER 2017-06-22 23:07 | Emergency (ER) | payer SELFPAY ==
[~2017-06-22] VITALS: Ht 180.3 cm; Wt 102.0 kg
[2017-06-22 23:08] VITALS: BP 157/83; PULSE 76; RESP 16; TEMP 99.1; O2SAT 97
[2017-06-23] MEDS ORDERED: DICL75TA PO (03:14)
[2017-06-23] MEDS ORDERED: NAPROXEN 500 MG TAB PO ONE (03:15)
--- NOTE | 2017-06-23 03:22 | PD ---
HPI Chief Complaint: Musculoskeletal Complaint Time Seen by Provider: 03:07 Travel History International Travel<30 days: No Contact w/Intl Traveler<30days: No Traveled to known affect area: No History of Present Illness HPI 57 year old black male presents emergency Department with complaints of pain in his left wrist and swelling now for last 1-2 months. He states that the pain has been persistent. He denies any injury. The pain is moderate. Worse with bending and rotation of the wrist. He denies any fever chills. No numbness, tingling. He states the pain radiates up the arm as well down into his thumb. No alleviating activity. PFSH Past Medical History Medical History: Denies Significant Hx Heart Rhythm Problems: No Cardiac Catheterization: No Cardiovascular Problems: No High Cholesterol: No Congestive Heart Failure: No Diabetes: No Diminished Hearing: No Heparin Induced Thrombocytopen: No Hypertension: No Tetanus Vaccination: Unknown Past Surgical History Surgical History: No Previous Surgery Coronary Artery Bypass Graft: No Family History Family Myocardial Infarction: Yes Social History Alcohol Use: Yes (OCC) Tobacco Use: Yes Substance Use: No (COCAINE, MJ) Allergies-Medications (Allergen,Severity, Reaction): Coded Allergies: diphenhydramine (Verified Allergy, Unknown, increased heart rate, 06/22/17) ondansetron (Verified Adverse Reaction, Mild, Nausea/Vomiting, 06/22/17) Reported Meds & Prescriptions Reported Meds & Active Scripts Active Diclofenac Sodium DR (Diclofenac Sodium) 75 Mg Tabdr 75 Mg PO BID Review of Systems Except as stated in HPI: all other systems reviewed are Neg Physical Exam Narrative GENERAL: This is a well-nourished, well-developed patient, in no apparent distress. SKIN: No rashes, ecchymoses or lesions. Warm and dry. HEAD: Atraumatic. Normocephalic. EYES: PERRL, EOMI, no discharge or injection. No scleral icterus. EARS: Clear NOSE: Nasal turbinates appear normal. THROAT: Mucosa pink and moist. Airway patent. NECK: Trachea midline. supple, moves head freely. LUNGS: Clear to auscultation. CV: Regular in rhythm. ABDOMEN: Soft nontender. EXT: No clubbing cyanosis. No pain in the hand, elbow or shoulder. Examination of the left wrist reveals tenderness along the radial aspect into the thumb. Patient has mild crepitus and mild swelling. Pain with flexion and extension of the thumb as well as ulnar and radial deviation of the wrist. He has intact gross sensation and good Refill. There is no erythema or warmth. Good radial pulse. Data Data Last Documented VS Vital Signs Date Time Temp Pulse Resp B/P (MAP) Pulse Ox O2 Delivery O2 Flow Rate FiO2 06/22/17 23:08 99.1 76 16 157/83 (107) 97 Room Air Orders Orders Splint Or Brace Apply/Monitor (06/23/17 03:12) Naproxen (Naprosyn) (06/23/17 03:15) Ed Discharge Order (06/23/17 03:13) [facility] Medical Decision Making Medical Screen Exam Complete: Yes Emergency Medical Condition: Yes Medical Record Reviewed: Yes Differential Diagnosis Differential diagnoses: Sprain, strain, Dequveins tenosynovitis Narrative Course Patient is given Naprosyn 500 mg by mouth as well as a Velcro wrist splint. This is De Quervain's tenosynovitis Diagnosis Primary Impression: De Quervain's tenosynovitis, left Referrals: [facility] 1 week Patient Instructions: General Instructions Additional Instructions: Rest. Elevation. Velcro wrist splint. Diclofenac. Follow-up with the [facility] within one week. Consider steroid injection Med/Other Pt SpecificInfo: Prescription(s) given Scripts Diclofenac Sodium (Diclofenac Sodium DR) 75 Mg Tabdr 75 MG PO BID, #20 TAB 0 Refills Prov: Payton Bernal MD 06/23/17 Disposition: 01 DISCHARGE HOME Condition: Stable Scooby Baumann Jun 23, 2017 03:22
== END 2017-06-23 03:32 | disposition home or self-care (01) ==
LOC: NEPD 23:07
DX: M65.4 Radial styloid tenosynovitis [de Quervain] (principal); Z72.0 Tobacco use
CPT/HCPCS: 99283; L3908

== ENCOUNTER 2017-07-05 22:35 | Emergency (ER) | payer SELFPAY ==
[~2017-07-05] VITALS: Ht 182.9 cm; Wt 85.0 kg
[~2017-07-05 22:35] MED LIST changes: -ASPI81CH6 PO; +DICL75TA PO; -MOBI15TA PO
[2017-07-05 22:36] VITALS: BP 138/72; PULSE 84; RESP 16; TEMP 99.1; O2SAT 98
--- NOTE | 2017-07-05 22:49 | PD ---
HPI Chief Complaint: Pain: Acute or Chronic Time Seen by Provider: 22:46 Travel History International Travel<30 days: No Contact w/Intl Traveler<30days: No Traveled to known affect area: No History of Present Illness HPI The patient is a 57 year old male who presents to the [facility] emergency department with a history of left wrist pain and swelling that began 4 months ago. The pain and swelling is along the radial aspect of the wrist and radiates into the first digit. He denies having any numbness or tingling associated with this. He denies having any redness. He reports the pain is worsened with abduction and abduction of his thumb. The pain is worse in the morning. He denies having any known injury. He reports that he works at a [employer]. He is right-hand dominant. He denies having any known fevers. He denies using IV drugs. The patient reports having a history of osteoarthritis. He denies any prior history of gout. On review of systems otherwise, the patient denies having any cough, congestion, neck pain, chest pain, shortness of breath, abdominal pain, vomiting, diarrhea, urinary symptoms , or neurologic symptoms. [facility] Past Medical History Narrative Medical The patient's past medical history is significant for osteoarthritis. Heart Rhythm Problems: No Cardiac Catheterization: No Cardiovascular Problems: No High Cholesterol: No Congestive Heart Failure: No Diabetes: No Diminished Hearing: No Heparin Induced Thrombocytopen: No Hypertension: No Immunizations Current: Yes Tetanus Vaccination: Unknown Influenza Vaccination: No Past Surgical History Narrative Surgical The patient's past surgical history is significant for a fistula repair. Coronary Artery Bypass Graft: No Family History Family Myocardial Infarction: Yes Social History Alcohol Use: Yes (OCC) Tobacco Use: No Substance Use: No (COCAINE, MJ) Allergies-Medications (Allergen,Severity, Reaction): Coded Allergies: diphenhydramine (Verified Allergy, Unknown, increased heart rate, 07/05/17) ondansetron (Verified Adverse Reaction, Mild, Nausea/Vomiting, 07/05/17) Reported Meds & Prescriptions Reported Meds & Active Scripts Active Meloxicam 15 Mg Tab 15 Mg PO DAILY Reported Stool Softener (Docusate Sodium) 100 Mg Cap 1 Tab PO DAILY Aspirin 81 Mg Chew 81 Mg CHEW DAILY Review of Systems Except as stated in HPI: all other systems reviewed are Neg General / Constitutional: No: Fever Eyes: No: Visual changes HENT: No: Headaches Cardiovascular: No: Chest Pain or Discomfort Respiratory: No: Shortness of Breath Gastrointestinal: No: Abdominal Pain Genitourinary: No: Dysuria Musculoskeletal: Positive: Myalgias, Arthralgias, Edema, Pain Skin: No Rash Neurologic: No: Weakness, Focal Abnormalities, Change in Mentation, Slurred Speech, Sensory Disturbance Psychiatric: No: Depression Endocrine: No: Polydipsia Hematologic/Lymphatic: No: Easy Bruising Physical Exam Narrative General: The patient is a well-developed well-nourished male in no acute distress. Head and Neck exam: Head is normocephalic atraumatic. Eyes: EOMI, pupils are equal round and reactive to light. Nose: Midline septum with pink mucous membranes Mouth: Dentition unremarkable. Moist mucus membranes. Posterior oropharynx is not erythematous. No tonsillar hypertrophy. Uvula midline. Airway patent. Neck: No palpable lymphadenopathy. No nuchal rigidity. No thyromegaly. Cardiovascular: Regular rate and rhythm without murmurs, gallops, or rubs. Lungs: Clear to auscultation bilaterally. No wheezes, rhonchi, or rales. Abdomen: Soft, without tenderness to palpation in all 4 quadrants of the abdomen. No guarding, rebound, or rigidity. Normal bowel sounds are audible. No tenderness on palpation of McBurney's point. Extremities: No clubbing, cyanosis, or edema. 2+ pulses in all 4 extremities. On examination of the area of interest, the left arm, the patient is noted to have tenderness on palpation along the distal radius, lateral side of the wrist with some swelling noted. The patient has no numbness or tingling to his fingers. The patient has full range of motion of his hand. The patient has less than 3 second capillary refill. The patient has increased pain with abduction and abduction of his thumb. Back: No costovertebral angle tenderness to palpation. Neurologic Exam: Grossly nonfocal. Skin Exam: No rash noted. Intact skin that is warm and dry. Data Data Last Documented VS Vital Signs Date Time Temp Pulse Resp B/P (MAP) Pulse Ox O2 Delivery O2 Flow Rate FiO2 07/06/17 01:49 07/05/17 22:36 99.1 84 16 98 Orders Orders Hand, Limited (2vws) (07/05/17 22:57) Wrist, Complete ([id number]) (07/05/17 22:57) Ed Discharge Order (07/06/17 00:56) MDM Medical Decision Making Medical Screen Exam Complete: Yes Emergency Medical Condition: Yes Medical Record Reviewed: Yes Interpretation(s) Last Impressions Wrist X-Ray 07/05/172256 Signed Impressions: Service Date/Time: Wednesday, July 05, 2017 23:13 - CONCLUSION: 1. There is evidence of deep soft tissue swelling about the wrist. 2. The osseous structures are grossly intact. Garland Rollins MD Hand X-Ray 07/05/172256 Signed Impressions: Service Date/Time: Wednesday, July 05, 2017 23:17 - CONCLUSION: Negative examination of the hand. Garland Rollins MD Differential Diagnosis Arthritis, versus tendinitis, versus gout Narrative Course During the course of the patients emergency department visit, the patients history, examination, and differential diagnosis were reviewed with the patient. The patient was placed on a cardiac rehabilitation specialist with oximetry and frequent blood pressure monitoring. The patient's electronic medical record was reviewed. The patient was seen in the emergency department regarding this on June 22. No imaging was done at that time. The patient was treated with a course of diclofenac. The patient reports that he completed the anti- inflammatory. He did not follow-up with the [facility] as recommended. He reports that he did use a Velcro wrist splint, however he reports that this seems to make his wrist more stiff. The patient's symptoms are most consistent with arthritis as the patient reports the pain is worse in the morning and improves with moving it throughout the day. An x-ray of the left wrist, left hand has been ordered. The patient was initially provided meloxicam. Radiology studies were reviewed and remarkable for x-ray shows soft tissue swelling of the wrist, no other acute abnormality. The patient's symptoms are most consistent with a tendinitis. The patient will be discharged home with a prescription for meloxicam. The patient is resting comfortably and feels better, is alert and in no distress. The patients results and examination findings were discussed with the patient. The repeat examination is unremarkable and benign. The history, exam, diagnostic testing, and current condition do not suggest any significant pathology to warrant further testing, continued ED treatment, admission, or surgical evaluation at this point. The vital signs have been stable. The patient does not have uncontrollable pain, intractable vomiting, or other significant symptoms. The patient's condition is stable and appropriate for discharge. The patient will pursue further outpatient evaluation with a primary care physician or other designated or consulting physician as indicated in the discharge instructions. The patient expressed understanding and was agreeable with this plan. Diagnosis Primary Impression: Left wrist pain Additional Impression: Tendonitis Referrals: [facility] 1 week Patient Instructions: General Instructions Med/Other Pt SpecificInfo: Prescription(s) given Scripts Meloxicam (Meloxicam) 15 Mg Tab 15 MG PO DAILY for Arthritis Pain, #14 TAB 0 Refills Prov: Payton Bernal MD 07/05/17 Disposition: 01 DISCHARGE HOME Condition: Stable Payton Bernal MD Jul 05, 2017 22:49
[2017-07-05] MEDS ORDERED: ASPI-516 CHEW (22:53)
[2017-07-05] MEDS ORDERED: DOCU1CAP66 PO (22:53)
[2017-07-05] MEDS ORDERED: MELO15TA20 PO (23:07)
--- NOTE | 2017-07-05 23:58 | RADRPT ---
EXAM DATE/TIME: 07/05/2017 23:13 [facility] COMPARISON: No previous studies available for comparison. INDICATIONS : Pain in left wrist no known injury. MEDICAL HISTORY : None. SURGICAL HISTORY : None. ENCOUNTER: Initial ACUITY: 1 day PAIN SCORE: 7/10 LOCATION: Left wrist FINDINGS: The osseous structures of the wrist are in normal alignment. No evidence of fracture or focal bony d estruction. There is evidence of deep soft tissue swelling with loss of delineation of the pronator quadratus fat pad. No radiopaque foreign bodies. CONCLUSION: 1. There is evidence of deep soft tissue swelling about the wrist. 2. The osseous structures are grossly intact. Garland Rollins MD on July 05, 2017 at 23:55 Board Certified Radiologist. This report was verified electronically.
--- NOTE | 2017-07-05 23:59 | RADRPT ---
EXAM DATE/TIME: 07/05/2017 23:17 [facility] COMPARISON: No previous studies available for comparison. INDICATIONS : Pain in left hand and wrist. MEDICAL HISTORY : None. SURGICAL HISTORY : None. ENCOUNTER: Initial ACUITY: 1 day PAIN SCORE: 4/10 LOCATION: Left hand FINDINGS: Two view examination of the left hand demonstrates no soft tissue swelling, dislocation, or fracture. The joint spaces are maintained. Bony mineralization is normal. CONCLUSION: Negative examination of the hand. Garland Rollins MD on July 05, 2017 at 23:57 Board Certified Radiologist. This report was verified electronically.
== END 2017-07-06 01:53 | disposition home or self-care (01) ==
LOC: NEPC 22:35
DX: M25.532 Pain in left wrist (principal); M77.9 Enthesopathy, unspecified; Z87.39 Personal history of other diseases of the musculoskeletal system and connective tissue; Z82.49 Family history of ischemic heart disease and other diseases of the circulatory system; Z88.8 Allergy status to other drugs, medicaments and biological substances
CPT/HCPCS: 73110; 73120; 99283